=== PATIENT | male | born 1985 | race American Indian/Alaskan Native ===

== ENCOUNTER 2016-11-04 19:02 | Emergency (ER) | payer OTHER ==
[2016-11-04] MEDS ORDERED: NACL 0.9% 500 ML IR ONE (21:34)
--- NOTE | 2016-11-04 22:14 | Emergency Department Report ---
ED Laceration HPI - HPI Chief Complaint: Wound/Laceration Stated Complaint: LAC TO L HAND Time Seen by Provider: 11/04/16 21:58 Occurred When: Today Location: Upper Extremity Severity: moderate Tetanus Status: Unknown Laceration Symptoms: Yes Pain, No Foreign Body Sensation, No Numbness, No Weakness Other History: Pt is a 31-year-old male resents to ED with a laceration on his left index finger. he states he was mixing juice in a glass jug when it broke and cut his finger. denies loss of sensation ED Review of Systems ROS: Stated complaint: LAC TO L HAND Other details as noted in HPI Constitutional: denies: chills, fever Eyes: denies: eye pain, eye discharge, vision change ENT: denies: ear pain, throat pain Respiratory: denies: cough, shortness of breath, wheezing Cardiovascular: denies: chest pain, palpitations Endocrine: no symptoms reported Gastrointestinal: denies: abdominal pain, nausea, vomiting, diarrhea Genitourinary: denies: urgency, dysuria Musculoskeletal: denies: back pain, joint swelling, arthralgia Skin: denies: rash, lesions Neurological: denies: headache, weakness, paresthesias Psychiatric: denies: anxiety, depression Hematological/Lymphatic: denies: easy bleeding, easy bruising ED Past Medical Hx - Past Medical History Previous Medical History?: No - Surgical History Past Surgical History?: No - Social History Smoking Status: Never Smoker Substance Use Type: Alcohol - Medications Home Medications: Home Medications Medication Instructions Recorded Confirmed Last Taken Type Acetaminophen/Codeine [Tylenol 1 tab PO Q6H PRN #12 tab 11/04/16 Unknown Rx /Codeine # 3 tab] Clindamycin [Clindamycin CAP] 150 mg PO BID #10 capsule 11/04/16 Unknown Rx Ibuprofen [Motrin] 800 mg PO Q8HR PRN #30 tablet 11/04/16 Unknown Rx Laceration Physical Exam - Exam General: Vital signs noted. No distress. Alert and acting appropriately. Wound Length (cm): 2 Laceration Location: Upper Extremity Full Body Front + Back: 1 - 3-4 cm laceration Laceration Exam: No Foreign Body, No Exposed Tendon, Vessel, or Nerve, No Tendon Injury, No Normal Distal CMS ED Course Vital Signs 11/04/16 19:27 Temperature 98.3 F Pulse Rate 107 H Respiratory 20 Rate Blood Pressure 146/96 O2 Sat by Pulse 100 Oximetry ED Medical Decision Making - Medical Decision Making 31-year-old male presents with finger laceration of the left hand ED course: Patient received pain medication and ED. Tetanus booster was also given The 4cm laceration wound was prepped and draped in sterile fashion. Anesthesia was achieved with 4mL of 1% lidocaine with digital block The wound was irrigated with 200cc NS and explored. There were no foreign bodies The wound was reapproximated in 1 layer with 8 sutures suing with three 5-0 monofilament sutures in the dermis with interrupted sutures percutaneously. There was excellent reapproximation of the wound edges. The patient tolerated the procedure without complication. Vital signs are normal patient is in no acute respiratory distress. Discussed the patient to return in 10-14 days for suture removal He is alert and oriented 3. He understands instructions given Critical care attestation.: If time is entered above; I have spent that time in minutes in the direct care of this critically ill patient, excluding procedure time. ED Disposition Clinical Impression: Laceration of finger of left hand Qualifiers: Encounter type: initial encounter Qualified Code(s): S61.219A - Laceration without foreign body of unspecified finger without damage to nail, initial encounter Disposition: DISCHARGED TO HOME OR SELFCARE Is pt being admited?: No Does the pt Need Aspirin: No Condition: Stable Instructions: Suture Care (ED), Finger Laceration (ED) Additional Instructions: Return to the ED in 10-14 days for suture removal. Particular medication as prescribed. Prescriptions: Acetaminophen/Codeine [Tylenol /Codeine # 3 tab] 1 tab PO Q6H PRN #12 tab PRN Reason: Pain Clindamycin [Clindamycin CAP] 150 mg PO BID #10 capsule Ibuprofen [Motrin] 800 mg PO Q8HR PRN #30 tablet PRN Reason: Pain Referrals: PRIMARY CARE, [Primary Care Provider] - 3-5 Days [facility] [Outside] - 3-5 Days [facility] [Outside] - 3-5 Days [facility] [Outside] - 3-5 Days Forms: Accompanied Note, Work/School Release Form(ED)
[2016-11-04] MEDS ORDERED: BOOSTRIX IM ONE (22:18)
[2016-11-04] MEDS ORDERED: NORCO 10/325 PO ONE (22:18)
[2016-11-04] MEDS ORDERED: XYLOCAINE 1% 20 mL INFILTRATI NR (22:30)
[2016-11-05] MEDS ORDERED: TRIPLE ANTIBIOTIC TP ONE (00:07)
[2016-11-05] MEDS ORDERED: NACL 0.9% IR ONE (04:54)
[2016-11-05 07:00] VITALS: BP 166/99
[2016-11-05] MEDS ORDERED: TRIPLE ANTIBIOTIC TP SCH ×2 (08:00)
== END 2016-11-05 00:10 | disposition home or self-care (01) ==
LOC: ED 19:02
DX: S61.211A Laceration without foreign body of left index finger without damage to nail, initial encounter (principal); W45.8XXA Other foreign body or object entering through skin, initial encounter; Y93.89 Activity, other specified; Y99.8 Other external cause status; Y92.89 Other specified places as the place of occurrence of the external cause
CPT/HCPCS: 90471; 90715; 99282; A6250